=== PATIENT | female | born 1990 | race African-American/Black ===

== ENCOUNTER 2022-08-20 05:29 | Inpatient (IN) ==
[2022-08-20] MEDS ORDERED: CARBOPROST TROMETHAMINE 250 MCG/ML AMP IM PRN (06:26)
[2022-08-20] MEDS ORDERED: BUTORPHANOL 2 MG/ML VIAL IV PRN (06:26)
[2022-08-20] MEDS ORDERED: LACTATED RINGERS 250 ML IV ONE (06:26)
[2022-08-20] MEDS ORDERED: miSOPROStoL 200 MCG TABLET RECTAL PRN (06:26)
[2022-08-20] MEDS ORDERED: ONDANSETRON 4 MG/2 ML VIAL IV PRN ×2 (06:26→14:59)
[2022-08-20] MEDS ORDERED: LACTATED RINGERS 500 ML IV PRN (06:26)
[2022-08-20] MEDS ORDERED: MEPERIDINE 50 MG/1 ML VIAL IV PRN (06:26)
[2022-08-20] MEDS ORDERED: TRANEXAMIC ACID 1,000 MG in SODIUM CHLORIDE 0.9% 100 ML IV PRN (06:26)
[2022-08-20] MEDS ORDERED: METHYLERGONOVINE 0.2 MG/1 ML AMP IM PRN (06:26)
[2022-08-20] MEDS ORDERED: OXYTOCIN/LR 20 UNIT/1,000 ML BAG IV ONE ×2 (06:26→14:59)
[2022-08-20] MEDS ORDERED: OXYTOCIN/LR 20 UNIT/1,000 ML BAG IV SCH (06:30)
[2022-08-20] MEDS: LACTATED RINGERS 1,000 ML IV SCH ×2 (06:34→09:49)
[2022-08-20 06:49] LABS: Basophils % 0.2 % (0.0-0.8); Eosinophils % 0.4 % (0.00-10.9); Hematocrit 34.5 VOL% (35.7-47.0); Hemoglobin 11.3 GM/DL (12.0-16.0); Immature Granulocytes % 0.6 %; Immature Granulocytes Absolute 0.05 #; Lymphocytes # 1.7 10*3/uL (1.4-4.0); Lymphocytes % 20.4 % (21.3-54.2); Mean Corpuscular HGB Conc 32.8 GM/DL (32-36); Mean Corpuscular Volume 82.1 FL (87-102); Mean Platelet Volume 9.1 FL (9.6-12.0); Monocytes # 0.8 10*3/uL (0.11-0.8); Monocytes % 9.6 % (1.7-12.7); Neutrophils % 68.8 % (38.7-73.9); Platelet Count 231 T/CUMM (130-400); Red Cell Distribution Width 13.2 % (9.3-17.3); White Blood Count 8.5 T/CUMM (4-12)
[2022-08-20] MEDS ORDERED: diphenhydrAMINE 50 MG/1 ML VIAL IV PRN (06:52)
[2022-08-20] MEDS ORDERED: hydrOXYzine HCL 25 MG/1 ML VIAL IM PRN (06:52)
[2022-08-20] MEDS ORDERED: NALOXONE 0.4 MG/ML VIAL IV PRN (06:52)
[2022-08-20] MEDS ORDERED: PROMETHAZINE 25 MG/1 ML VIAL IM PRN (06:52)
[2022-08-20] MEDS ORDERED: FAMOTIDINE 20 MG/2 ML VIAL IV ONE (06:52)
[2022-08-20] MEDS ORDERED: ePHEDrine 50 MG/ML VIAL IV PRN (06:52)
[2022-08-20] MEDS ORDERED: CITRIC ACID/SODIUM CITRATE 30 ML UDCUP PO ONE (06:52)
[2022-08-20] MEDS ORDERED: fentaNYL 2 MCG/ROPIV 0.2% EPID 100 ML EPIDURAL SCH (07:00)
[2022-08-20 08:11] LABS: RPR Confirm - Less than 1 yr REACTIVE (Nonreactive)
[2022-08-20 08:15] LABS: Mucus,Urine Occasional /LPF (Occasional); RBC,Urine 1 /HPF (0-4); Urine Appearance Clear (Clear); Urine Color Yellow (Yellow)
[2022-08-20 08:16] LABS: Bilirubin,Urine Negative (Negative); Blood, Urine Negative (Negative); Glucose,Urine (UA) Negative (Negative); Ketones,Urine Negative (Negative); Nitrite,Urine Negative (Negative); Protein,Urine Negative (Negative); Urine Specific Gravity > 1.030 (1.001-1.035); Urine Urobilinogen 0.2 eU/dL (<2.0); Urine pH 6.5 (4.5-8.0)
[2022-08-20] MEDS ORDERED: SODIUM CHLORIDE 0.9% 0 ML IV ONE (09:54)
[2022-08-20] MEDS ORDERED: miSOPROStoL 200 MCG TABLET ONE (09:54)
[2022-08-20] MEDS ORDERED: TRANEXAMIC ACID 1,000 MG/10 ML VIAL ONE (09:54)
[2022-08-20] MEDS ORDERED: METHYLERGONOVINE 0.2 MG/1 ML AMP ONE (09:55)
[2022-08-20] MEDS ORDERED: CARBOPROST TROMETHAMINE 250 MCG/ML AMP IM ONE (09:55)
[2022-08-20 11:06] LABS: Cord Venous Blood HCO3 20.9 MMOL/L; Cord Venous Blood PCO2 36.5 MMHG; Cord Venous Blood PO2 42.6
[2022-08-20] MEDS ORDERED: HYDROCORTISONE 2.5% RECTAL CREAM 30 GM TUBE TOP PRN (14:59)
[2022-08-20] MEDS ORDERED: BISACODYL 10 MG SUPP RECTAL PRN (14:59)
[2022-08-20] MEDS ORDERED: LANOLIN 50% CREAM 0.3 OZ TUBE TOP PRN (14:59)
[2022-08-20] MEDS ORDERED: DIPH/TET/ACEL PERT BOOSTER VACCINE 0.5 ML VIAL IM ONE (14:59)
[2022-08-20] MEDS ORDERED: WITCH HAZEL PADS 100/JAR TOP PRN (14:59)
[2022-08-20] MEDS ORDERED: oxyCODONE/ACETAMINOPHEN 5-325 MG TABLET PO PRN ×2 (14:59)
[2022-08-20] MEDS ORDERED: BENZOCAINE 20%/MENTHOL 0.5% SPRAY 56 GM CAN TOP PRN (14:59)
[2022-08-20] MEDS ORDERED: RHO(D) IMMUNE GLOBULIN 300 MCG SYRINGE IM ONE (14:59)
[2022-08-20] MEDS ORDERED: ACETAMINOPHEN 325 MG TABLET PO PRN (14:59)
[2022-08-20] MEDS ORDERED: MEASLES/MUMPS/RUBELLA VACCINE 0.5 ML VIAL SUBCUT ONE (14:59)
[2022-08-20] MEDS: IBUPROFEN 800 MG TABLET PO PRN (20:01)
[2022-08-20] MEDS: DOCUSATE SODIUM 100 MG CAPSULE PO SCH (22:18)
[2022-08-21] MEDS: IBUPROFEN 800 MG TABLET PO PRN ×2 (03:13→15:48)
[2022-08-21 03:43] LABS: Basophils % 0.3 % (0.0-0.8); Eosinophils % 0.2 % (0.00-10.9); Hematocrit 33.7 VOL% (35.7-47.0); Hemoglobin 10.8 GM/DL (12.0-16.0); Immature Granulocytes % 0.7 %; Immature Granulocytes Absolute 0.08 #; Lymphocytes # 1.8 10*3/uL (1.4-4.0); Lymphocytes % 15.2 % (21.3-54.2); Mean Platelet Volume 9.3 FL (9.6-12.0); Monocytes # 1.3 10*3/uL (0.11-0.8); Neutrophils % 72.6 % (38.7-73.9); Platelet Count 218 T/CUMM (130-400); Red Blood Count 4.06 MC/CUMM (3.8-5.5); Red Cell Distribution Width 13.2 % (9.3-17.3); White Blood Count 11.9 T/CUMM (4-12)
[2022-08-21] MEDS: DOCUSATE SODIUM 100 MG CAPSULE PO SCH ×2 (09:12→20:35)
[2022-08-21] MEDS: MULTIVITAMIN (PRENATAL) TABLET PO SCH (09:15)
[2022-08-22] MEDS: DOCUSATE SODIUM 100 MG CAPSULE PO SCH (08:54)
[2022-08-22] MEDS: MULTIVITAMIN (PRENATAL) TABLET PO SCH (08:54)
[2022-08-22 10:05] VITALS: BP 105/61
== END 2022-08-22 11:20 | disposition home or self-care (01) | DRG 560 ==
LOC: N.LD 05:29 → N.OB 13:40
PROVIDERS: ADMIT Specialist; ATTEND Specialist